=== PATIENT | male | born 1970 | race Caucasian/White ===

== ENCOUNTER 2021-08-10 10:20 | Emergency (ER) | payer BC, SELFPAY ==
--- NOTE | ~2021-08-10 | XR_ITS ---
XR thoracic spine 3V 08/10/2021 11:22 Indication: Back pain Procedure: 3 views of the thoracic spine Comparison: No prior studies for comparison. Findings: There is mild levocurvature of the thoracic spine. No fracture or traumatic malalignment. N o paraspinal soft tissue abnormality. Surrounding osseous structures are unremarkable. There are chol ecystectomy clips. Left renal stones are partially visualized. Impression: 1: No acute abnormality of the thoracic spine. Reviewed, dictated and finalized at location A. Impression: 1: No acute abnormality of the thoracic spine.
--- NOTE | ~2021-08-10 | CT_ITS ---
EXAMINATION: CTA chest abdomen pelvis EXAM DATE: 08/10/2021 13:16 INDICATION: chest pain radiating to back, rule out aneursym . TECHNIQUE: Computed tomographic angiography (CTA) of the chest was performed with 100 mL Omnipaque-30 0 intravenous contrast. Automated exposure control and iterative reconstruction technique were employ ed. The dose-length product was 1449.27 mGy-cm. Maximum intensity projection 3D-reconstructions of th e aorta and other arteries were constructed by the technologist on a separate workstation. COMPARISON: None. FINDINGS: Aorta and pulmonary arteries are opacified. Thoracic aorta is normal in caliber, no dissect ion. There are no pleural or pericardial effusions. Tracheobronchial tree is patent. There is no mediastinal, hilar or axillary lymphadenopathy. There is no pneumothorax. Heart normal in size. No evidence of coronary arterial calcification. No acute osseous finding in the chest. Abdomen/pelvis: Liver: Normal. Biliary/Gallbladder: Gallbladder is absent. No bile duct dilation. Pancreas: No mass or duct dilation. Spleen: Normal. Adrenals:No mass. Kidneys: Numerous bilateral nephroliths, no mass or hydronephrosis. No distal collecting system calci fication. GI tract: No small or large bowel dilation. Normal appendix. Mesentery/Peritoneum: Chest Retroperitoneum: No mass. Minimal abdominaNo massial atherosclerotic calcification. 1.8 cm splenic ar rene aneurysm.The celiac, SMA, renal arteries and CAL are widely patent. Pelvis: Mild bladder wall thickening likely due to osseous element compromise from prostatomegaly. Soft Tissues: Soft tissues and body walSoft tissues and body wall unremarkable. finding in the abdome n/pelvis. IMPRESSION: 1.8 cm splenic artery aneurysm, otherwise unremarkable CTA chest, abdomen, pelvis examina tion. Reviewed, dictated and finalized at location K. IMPRESSION: 1.8 cm splenic artery aneurysm, otherwise unremarkable CTA chest, a bdomen, pelvis examination.
--- NOTE | ~2021-08-10 | XR_ITS ---
EXAMINATION: XR chest 2V 08/10/2021 11:21 INDICATION: Chest pain PROCEDURE: 2 view chest COMPARISON: No prior studies for comparison. FINDINGS: The lungs are clear. The cardiomediastinal silhouette is within normal limits. There are no pleural effusions. There is no pneumothorax suspected. IMPRESSION: 1: NO ACUTE CARDIOPULMONARY DISEASE. Reviewed, dictated and finalized at location A.
--- NOTE | ~2021-08-10 | XR_ITS ---
XR lumbar spine 2-3V 08/10/2021 11:21 Indication: Neck pain for one week Procedure: 3 views lumbar spine Comparison: No prior studies for comparison. Findings: Vertebral body and disc heights are preserved. No fracture or traumatic malalignment. Pedic les intact. There are multiple bilateral renal stones. No evidence for fracture or spondylolisthesis. Impression: 1: No acute abnormality of the lumbar spine. 2: Bilateral nephrolithiasis. Reviewed, dictated and finalized at location A. Impression: 1: No acute abnormality of the lumbar spine. 2: Bilateral nephrolithiasis.
--- NOTE | 2021-08-10 10:26 | ECG_ITS ---
Measurements Intervals [place] Rate: 93 P: 58 NM: 143 QRS: 24 QRSD: 110 T: -7 QT: 352 QTc: 438 Interpretive Statements SINUS RHYTHM NONSPECIFIC T-WAVE ABNORMALITY ABNORMAL ECG NO PREVIOUS ECG AVAILABLE FOR COMPARISON Electronically Signed On 08-10-2021 11:09:53 CDT by Ebenezer Blanchard M.D.
[2021-08-10 10:27] VITALS: BP 158/93; PULSE 92; RESP 16; TEMP 36.3; O2SAT 98
[2021-08-10 10:41] LABS: Basophils Absolute Auto 0.1 K/mm3 (0.0-0.1); Basophils Percent Auto 1.1 % (0.2-1.2); Eosinophils Absolute Auto 0.2 K/mm3 (0-0.3); Eosinophils Percent Auto 2.4 % (0-4.4); Hematocrit 43.9 % (42.0-52.0); Hemoglobin 15.3 g/dL (14.0-18.0); Immature Granulocyte Absolute 0.03 K/mm3 (0.00-0.031); Immature Granulocyte Percent A 0.4 % (0-0.5); Lymphocytes Absolute Auto 1.86 K/mm3 (0.9-3.2); Lymphocytes Percent Auto 22.7 % (18.3-44.2); Mean Corpuscular HGB Conc 34.9 g/dl (32-36); Mean Corpuscular Hemoglobin 31.1 pg (26-34); Mean Corpuscular Volume 89.2 fl (80-100); Mean Platelet Volume 11.2 fl (7.4-10.4); Monocytes Absolute Auto 0.4 K/mm3 (0.1-0.6); Neutrophils Absolute Auto 5.6 K/mm3 (1.3-6.7); Neutrophils Percent Auto 68.4 % (45.5-73.1); Platelet Count Result 195 k/mm3 (150-375); Red Blood Count 4.92 M/mm3 (4.6-6.20); Red Cell Distribution Width 12.9 % (11.5-14.5); White Blood Count 8.2 K/mm3 (4.5-10.0)
[2021-08-10 10:52] LABS: INR 1.1; Partial Thromboplastin Time 21.9 SECONDS (22.3-36.8); Prothrombin Time 13.6 Seconds (11.1-14.7)
[2021-08-10 10:59] LABS: Alanine Aminotransferase 79 U/L (6-50); Albumin Level 4.5 g/dL (3.5-5.1); Alkaline Phosphatase 71 U/L (38-126); Anion Gap 12 mmol/L (8-16); Aspartate Amino Transferase 62 U/L (17-59); Bilirubin,Total 0.7 mg/dL (0.2-1.3); Blood Urea Nitrogen 11 mg/dL (9-20); Calcium 8.9 mg/dL (8.4-10.2); Carbon Dioxide 21 mmol/L (22-30); Chloride 103 mmol/L (98-107); Estimated CRCL calculation 106 ml/min; Estimated Glomerular Filt Rate > 60; Glucose 321 mg/dL (65-110); Lipase 125 U/L (23-300); Potassium 4.4 mmol/L (3.4-5.0); Sodium 136 mmol/L (137-145)
--- NOTE | 2021-08-10 11:07 | PC.NURSE ---
pt to xray via stretcher
[2021-08-10 11:08] LABS: Troponin I < 0.012 ng/mL (0.000-0.034)
[2021-08-10 11:28] LABS: D Dimer < 0.27 ug/mL (<0.48)
--- NOTE | 2021-08-10 11:31 | ED.GENADULT ---
HPI - General Adult General Chief complaint: Chest Pain Stated complaint: Chest Pain, SOB Time Seen by Provider: 08/10/21 10:31 Source: patient and RN notes reviewed Mode of arrival: ambulatory Limitations: no limitations History of Present Illness HPI narrative: This is a 50 year old male who presents for evaluation of mid back pain. Patient states he developed pain across his mid back 1 week ago [place]. Patient states he fell 3 weeks ago but he was not having back pain after his fall. This pain has been constant, and it seems worse with position. His pain is worse with laying on his back for a while. Triage note states patient having chest pain as well. Patient denies chest pain. He reports chronic upper abdominal pain due to [place]. HE has not taking anything for her pain. HE denies associates nausea, vomiting, fever, chills, or shortness of breath. Denies history of DVT or PE. Denies signs of DVT. Rates pain 08/08. Related Data Allergies Allergy/AdvReac Type Severity Reaction Status Date / Time No Known Allergies Allergy Verified 08/10/21 10:38 Review of Systems Review of Systems: All systems reviewed & are unremarkable except as noted in HPI and below Constitutional: Constitutional: Denies chills, Denies fatigue and Denies fever(s) ENT: Denies nasal congestion and Denies sore throat Cardiovascular: Cardiovascular: Reports chest pain, Denies rapid heart rate and Denies slow heart rate Respiratory: Respiratory: Denies chest congestion, Denies cough and Denies dyspnea Gastrointestinal: Gastrointestinal: Reports abdominal pain (chronic) Genitourinary: Genitourinary: Denies hematuria, Denies oliguria and Denies urinary frequency Musculoskeletal: Musculoskeletal: Reports back pain and Denies arthralgias Neurologic: Denies headache(s), Denies focal weakness and Denies numbness Endocrine: Endocrine: Denies excessive sweating and Denies fatigue PMFSH Past Medical History Medical History (Updated 08/10/21 @ 19:00 by Mitzi Smith MD) Kidney stone Surgical History Surgical History (Updated 08/10/21 @ 19:01 by Mitzi Smith MD) Hx of cholecystectomy Social History Social History (Updated 08/10/21 @ 19:01 by Mitzi Smith MD) Smoking status: Never smoker Exam Const: General: healthy appearing, no acute distress and alert Nutritional Appearance: well nourished Orientation/consciousness: patient oriented x3 HENMT: Ears: external ears normal General nose exam: Normal external nose present Face and sinus: normal facial exam Mouth: Yes Normal oral and palatal mucosa present Throat: posterior oropharynx normal Eyes: Conjunctivae: conjunctivae normal Pupils: Equal, round and reactive pupils present EOM: EOMs intact bilaterally Chest: Chest palpation & inspection: normal inspection of the chest Resp: Effort & Inspection: normal respiratory effort Auscultation: clear to auscultation bilaterally and breath sounds present Cardio: Rate: regular rate Rhythm: regular rhythm Heart sounds: no murmurs GI: GI Palp: Yes Soft to palpation, Yes Tenderness to palpation present (GI) (RUQ), No Guarding due to palpation present (GI) and No Rigid due to palpation Auscultation: normal bowel sounds : General: Yes no CVA tenderness Back/Spine/Pelvis: Thoracic/Lumbar Spine: thoracic and lumbar spine normal to inspection Skin: General skin exam: normal color Rashes: no rashes Wounds: no wounds Neuro: General: patient oriented x3, moves all extremities and CN's II-XI intact bilaterally Psych: Mental Status: mental status grossly normal Affect: normal affect Course Reevaluation(s) Reevaluation #1: 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 I do not think this is cause of his pain. Will have him to follow up with PCP . Will treat back pain with muscle relaxers. Date: 08/10/21 Time: 14:40 Vital Signs Vital signs: Vital Signs Temperatur
[2021-08-10 11:44] LABS: Appearance Urine Clear (Clear); Bilirubin Urine Negative (Negative); Blood Urine Negative (Negative); Color Urine Yellow (Yellow); Glucose Urine UA 3+ mg/dL (Negative); Ketones Urine Negative (Negative); Leukocyte Esterase Ur Negative LEU/UL (Negative); Nitrate Urine Negative (Negative); Protein Urine Negative (Negative); Urobilinogen Urine 0.2 mg/dL (<2.0); pH Urine 5.5 (5.0-9.0)
[2021-08-10 11:51] LABS: Mucus Urine Rare /lpf; RBC Urine 0-2 /hpf (0-2); WBC Urine 0-3 /hpf
[2021-08-10 12:03] LABS: Add Urine Microscopic? YES
[2021-08-10 13:05] VITALS: BP 99/56; PULSE 90; RESP 18; O2SAT 98
[2021-08-10 13:48] LABS: Troponin I < 0.012 ng/mL (0.000-0.034)
[2021-08-10 14:56] VITALS: BP 113/81; PULSE 99; RESP 15; O2SAT 98
== END 2021-08-10 15:04 | disposition home or self-care (01) ==
PROVIDERS: Emergency Provider General Practice
DX: M54.6 Pain in thoracic spine (principal); I72.8 Aneurysm of other specified arteries; Z87.442 Personal history of urinary calculi; N20.0 Calculus of kidney; R94.31 Abnormal electrocardiogram [ECG] [EKG]
CPT/HCPCS: 36415; 71046; 71275; 72072; 72100; 74174; 80053; 81001; 83690; 84484; 85025; 85380; 85610; 85730; 93005; 96365; 99284; J0131; Q9967

== ENCOUNTER 2023-07-26 16:41 | Emergency (ER) | payer OTHER, SELFPAY ==
--- NOTE | ~2023-07-26 | CT_ITS ---
EXAMINATION: CT orbit BI wo con DATE: 07/26/2023 17:53 INDICATION: Foreign body of the TECHNIQUE: Computed tomography (CT) of the orbits was performed without intravenous contrast. The dos e-length product was 180.78 mGy-cm. Automated exposure control and iterative reconstruction technique were employed. COMPARISON: None FINDINGS: There is a small 3 mm radiodensity superior-medial to the globe, axial images 69-71. Eviden ce for disconjugate gaze. Post septal soft tissues are unremarkable. No intracranial abnormality. Min imal mucosal thickening of the sinuses. IMPRESSION: 1. Small curvilinear radiodensity superior-medial to the LEFT globe, suspicious for foreign body. Reviewed, dictated and finalized at location A.
[2023-07-26 16:43] VITALS: BP 149/100; PULSE 96; RESP 16; TEMP 36.6; O2SAT 99
--- NOTE | 2023-07-26 17:07 | ED.EYEPROB ---
HPI - Eye Problem General Chief complaint: Eye Problems <JUAN Alberto Last Filed: 07/26/23 19:46> Stated complaint: splinter in eye <JUAN Alberto Last Filed: 07/26/23 19:46> Time Seen by Provider: 07/26/23 17:01 <JUAN Alberto Last Filed: 07/26/23 19:46> History of Present Illness HPI Narrative: 52 year old male presents to the emergency department concerns for foreign body in his right eye. Patient states 1 hour prior to arrival he was sawing a tree when he felt something go into his eye. States he was wearing his normal eyeglasses, no goggles. states he thought he saw a speck on his eye on the 10 o'clock position overlying the iris. He denies any vision changes, pain with EOMs. States he has been having some clear tearing out of that eye. he does not were contacts. Tetanus is up-to-date per patient <JUAN Alberto Last Filed: 07/26/23 19:46> Related Data Allergies/adverse reactions: Allergies Allergy/AdvReac Type Severity Reaction Status Date / Time No Known Allergies Allergy Verified 08/10/21 10:38 <JUAN Alberto Last Filed: 07/26/23 19:46> Review of Systems Review of Systems: CONSTITUTIONAL: Denies fever, chills, or sweats. EYES: See HPI ENT: Denies rhinorrhea, congestion, sore throat, or otalgia. CARDIOVASCULAR: Denies chest pain, palpitations, or edema. RESPIRATORY: Denies cough or dyspnea. GASTROINTESTINAL: Denies abdominal pain, nausea, vomiting, or diarrhea. GENITOURINARY: Denies dysuria or hematuria. SKIN: Denies rash or itching. MUSCULOSKELETAL: Denies back pain, joint pain, or myalgia. NEUROLOGIC: Denies headache, numbness, or weakness. PSYCHIATRIC: Denies anxiety or depression. <JUAN Alberto Last Filed: 07/26/23 19:46> [facility] Past Medical History Medical History: Medical History Diabetes mellitus Kidney stone <Merissa Henning PA-C - Last Filed: 07/26/23 19:46> Surgical History Surgical History: Surgical History Hx of cholecystectomy <Merissa Henning PA-C - Last Filed: 07/26/23 19:46> Social History Social History: Social History Smoking status: Never smoker <Merissa Henning PA-C - Last Filed: 07/26/23 19:46> Exam Narrative: GENERAL: Well-appearing, well-nourished, and in no acute distress. HEAD: Normocephalic, atraumatic. EYES: PERRLA and EOMI. right eye with mild injection and clear tearing. No erythema to the conjunctiva. No proptosis, no pain with EOMs. No purulent discharge. peripheral vision intact. No foreign bodies visualized on exam. Forcing staining shows a small corneal abrasion at the 10 o'clock position. negative Carrol sign. No foreign bodies or abrasions noted to the inner eyelids. ENT: Nares clear, no rhinorrhea or epistaxis. Mucous membranes moist. CHEST: Clear to auscultation. No respiratory distress. HEART: Regular rate and rhythm. No murmur heard. Normal peripheral pulses. SKIN: Warm, dry, no rash. NEURO: No focal deficits. Alert and oriented x3 <Merissa Henning PA-C - Last Filed: 07/26/23 19:46> Course SUPERVISOR SHOW OPERATIONS/PA Physician Supervision For this patient encounter, I reviewed the SUPERVISOR SHOW OPERATIONS or PA documentation, treatment plan, and medical decision making and had [id number] time with this patient. I performed all aspects of the MDM as documented. <Ric La MD - Last Filed: 07/26/23 18:34> Vital Signs Vital signs: Vital Signs Temperature 98 F 07/26/23 16:43 Pulse Rate 96 07/26/23 16:43 Respiratory Rate 16 07/26/23 16:43 Blood Pressure 149/100 H 07/26/23 16:43 Pulse Oximetry 99 07/26/23 16:43 Oxygen Delivery Room Air 07/26/23 16:43 Temperature 98 F 07/26/23 16:43 Pulse Rate 96 07/26/23 16:43 Respiratory Ra
== END 2023-07-26 19:05 | disposition home or self-care (01) ==
PROVIDERS: Emergency Provider Physician Assistant
DX: S05.01XA Injury of conjunctiva and corneal abrasion without foreign body, right eye, initial encounter (principal); E11.9 Type 2 diabetes mellitus without complications; Z87.442 Personal history of urinary calculi; Z90.49 Acquired absence of other specified parts of digestive tract; W44.8XXA Other foreign body entering into or through a natural orifice, initial encounter
CPT/HCPCS: 70480; 99283